=== PATIENT | female | born 1980 | race Asian ===

== ENCOUNTER 2017-10-19 22:25 | Emergency (ER) | payer SELFPAY ==
--- NOTE | 2017-10-19 23:29 | EDPHY ---
H & P Time Seen by Provider: 10/19/17 22:49 HPI/ROS: CHIEF COMPLAINT: Dog bite left leg HISTORY OF PRESENT ILLNESS: 37-year-old female presents to the emergency department by private vehicle with concerns about a dog bite to her left leg. The patient states her landlord's dog bit her in her left leg. She thinks that this was because "the dog new I was afraid of it". The incident happened at 11 o'clock this morning. The patient shows me that the dog is up-to-date on rabies vaccine but is concerned about possible rabies infection. She thinks her last tetanus shot was in 2002 or even prior. She has no other complaints. ROS: Denies numbness or tingling in her toes, retained foreign body. Past Medical/Surgical History: Negative Social History: From [employer] Smoking Status: Never smoked Physical Exam: On examination the patient has evidence of ecchymosis to the anterior lateral aspect of her left leg. Difficult to tell if there is any obvious break in the skin. There certainly is no active bleeding. No puncture wound noted. No bony tenderness. She has a normal gait. Full range of motion of her left ankle and left knee. Constitutional: Initial Vital Signs Temperature (C) 36.6 C 10/19/17 22:28 Heart Rate 84 10/19/17 22:28 Respiratory Rate 16 10/19/17 22:28 Blood Pressure 116/87 H 10/19/17 22:28 O2 Sat (%) 95 10/19/17 22:28 O2 Delivery Mode Room Air Allergies/Adverse Reactions: shellfish derived Allergy (Verified 10/19/17 22:31) Home Medications: Medication Instructions Recorded Amoxicillin/Clavulanate Pot 875 mg PO BID #10 tab 10/19/17 [Augmentin 875 mg tab] Olanzapine 10/19/17 MDM/Departure - MDM Medications Given: Discontinued Medications Amoxicillin/Clavulanate Potassium (Augmentin 875mg) 875 mg PO EDNOW ONE PRN Reason: Protocol Stop: 10/19/17 23:31 Last Admin: 10/19/17 23:36 Dose: 875 mg Diphtheria/Tetanus/Acell Pertussis (Boostrix) 0.5 ml IM .ONCE ONE Stop: 10/19/17 23:26 Last Admin: 10/19/17 23:36 Dose: 0.5 ml ED Course/Re-evaluation: 37-year-old female presents to the emergency department with dog bite to her left leg. The patient showed me the vaccine record that was provider by her landlord of the dog and the dog is up-to-date on rabies vaccine in is not due to have this updated until January of 2019. This was from a veterinary office in [place], [place]. I explained to the patient that the dog was up-to- date on rabies vaccine and the dog was domesticated in can be watched for 10 days for any kind of rabies type behavior. I do not think initiating rabies vaccine or rabies immunoglobulin is indicated in the emergency department. This was explained to the patient. Animal Control came to talk with the patient in the emergency department. She was given their information. The patient will be started on Augmentin 875 mg twice daily for 5 days to prevent any kind of infection. Again difficult to tell on examination whether there is actually a break in the skin but the patient will be started on Augmentin as a precautionary measure. She does have area of ecchymosis. The patient was given wound care precautions. The patient's tetanus shot was updated in the emergency department. - Depart Disposition: Home, Routine, Self-Care Clinical Impression: Dog bite of left lower leg Qualifiers: Encounter type: initial encounter Qualified Code(s): S81.852A - Open bite, left lower leg, initial encounter Condition: Good Instructions: Animal Bite (ED), Acute Wounds (ED) Additional Instructions: Your given a tetanus shot today. Please document this for your records. Augmentin 875 mg twice daily for 5 days to prevent infection. Return if you notice any signs of infection such as redness, swelling, increased pain, fever, purulent drainage. Animal Control has been contacted and they are aware of the domesticated dog that bit to in her left leg. This dog is up-to-date on rabies vaccine as you have shown in the report. The dog will be observed/quarantined for 10 days to observe for any abnormal or rabid behavior. Prescriptions: Amoxicillin/Clavulanate Pot [Augmentin 875 mg tab] 875 mg PO BID #10 tab Referrals: Jaiden Garnett MD [[facility] Primary Care Provider] - 2-3 days, if not improved ( Primary care provider [employer] consultant)
[2017-10-19] MEDS: TDAP ADULT 0.5 ML INJ (BOOSTRIX) IM ONE (23:36)
[2017-10-19] MEDS: AMOXICILLIN/CLAVULANATE POT 875/125 MG TAB PO ONE (23:36)
[2017-10-20] MEDS: TDAP ADULT 0.5 ML INJ (BOOSTRIX) IM ONE (00:07)
[2017-10-20] MEDS: AMOXICILLIN/CLAVULANATE POT 875/125 MG TAB PO ONE (00:08)
[2017-10-20 00:23] VITALS: BP 112/72
== END 2017-10-20 00:23 | disposition home or self-care (01) ==
DX: S81.852A Open bite, left lower leg, initial encounter (principal); W54.0XXA Bitten by dog, initial encounter; Y99.8 Other external cause status; Y93.89 Activity, other specified